=== PATIENT | female | born 1955 | race Caucasian/White ===

== ENCOUNTER 2021-07-05 19:33 | Inpatient (IN) | payer OTHER ==
[~2021-07-05] VITALS: Ht 167.6 cm; Wt 107.8 kg
[2021-07-05 19:36] VITALS: BP 179/65
[2021-07-05 20:09] LABS: URINE BILIRUBIN NEGATIVE (Negative); URINE BLOOD NEGATIVE (Negative); URINE CLARITY CLEAR; URINE COLOR YELLOW; URINE GLUCOSE-RANDOM* NEGATIVE (Negative); URINE KETONES NEGATIVE (Negative); URINE PROTEIN (DIPSTICK) NEGATIVE (Negative); URINE UROBILINOGEN 0.2 E.U./dl (0.2-1.0)
[2021-07-05 20:11] LABS: URINE LEUKOCYTES-REFLEX 1+ (Negative); URINE NITRITE-REFLEX POSITIVE (Negative)
[2021-07-05 20:16] LABS: BACTERIA-REFLEX >30 Many /HPF (None Seen); CASTS None Seen /LPF (None Seen); MUCUS 0-3 Light strn/LPF (None Seen); SQUAMOUS None Seen /LPF (0-3)
[2021-07-05 20:17] LABS: CRYSTALS None Seen /LPF (None Seen); URINE RBC 1-2 Rare /HPF (NONE SEEN); URINE WBC-REFLEX 6-15 Few /HPF (0-5)
[2021-07-05 20:24] LABS: BASOPHILS 0.4 % (0.0-2.0); EOSINOPHILS 0.7 % (0.0-3.0); HEMATOCRIT 41.7 % (37.0-47.0); HEMOGLOBIN 13.9 gm/dL (12.0-15.0); LYMPHOCYTES 13.1 % (24.0-44.0); MCH 30.2 pg (26.0-34.0); MCHC 33.3 g/dL (28.0-37.0); MCV 90.6 fL (80.0-100.0); MONOCYTES 6.6 % (1.0-8.0); PLATELET COUNT 199 thou/uL (150-400); POLYS 79.2 % (36.0-66.0); RDW 13.8 % (10.5-14.5); WBC 11.4 thou/uL (4.0-11.0)
[2021-07-05 20:33] LABS: ANION GAP 13 mmol/L (7-16); BUN 17 mg/dL (7-18); CHLORIDE 102 mmol/L (98-107); CO2 25 mmol/L (21-32); CREATININE 0.8 mg/dL (0.6-1.0); GLUCOSE 138 mg/dL (74-106); POTASSIUM 3.7 mmol/L (3.5-5.1); SODIUM 140 mmol/L (136-145)
[2021-07-05 20:39] LABS: ALBUMIN 3.7 g/dL (3.4-5.0); DIRECT BILIRUBIN < 0.1 mg/dL (<0.1-0.2); LIPASE 94 U/L (73-393); SGOT 27 U/L (15-37); SGPT 23 U/L (30-65); TOTAL BILIRUBIN 0.3 mg/dL (0.2-1.0)
[2021-07-05] MEDS ORDERED: GABAPENTIN600 M1 PO (22:04)
[2021-07-05] MEDS ORDERED: OXYBUTYNIN 5 MG5 M2 PO (22:04)
[2021-07-05] MEDS ORDERED: AMITRIPTYLINE H10 M1 PO (22:04)
[2021-07-05] MEDS ORDERED: ALLOPURINOL 10100 M1 PO (22:04)
[2021-07-05] MEDS ORDERED: SUPER THERAVIT1 EACH PO (22:05)
[2021-07-05] MEDS ORDERED: CALCIUM CITRAT200 MG PO (22:06)
[2021-07-05] MEDS ORDERED: IRON325 M1 PO (22:07)
[2021-07-05] MEDS ORDERED: B-12500 MCG PO (22:07)
[2021-07-06 04:02] LABS: HEMATOCRIT 44.9 % (37.0-47.0); MCH 30.2 pg (26.0-34.0); MCHC 33.3 g/dL (28.0-37.0); MCV 90.6 fL (80.0-100.0); RBC 4.96 mil/uL (4.20-5.00); RDW 13.9 % (10.5-14.5)
[2021-07-06 04:03] VITALS: BP 164/91
[2021-07-06 04:14] LABS: CALCIUM 8.1 mg/dL (8.5-10.1); CREATININE 0.8 mg/dL (0.6-1.0)
--- NOTE | 2021-07-06 07:27 | EKG ---
[address] [email or web address] [address] ELECTROCARDIOGRAM REPORT Name: GARRY WONG Steph Room #: 170- ADM IN .R.#: [id number] Admission: 07/05/21 Attend Phys: Melvin Carlos MD Discharge: Date of : 51 Report #: [id number] [facility] ED Test Date: 2021-07-05 Test Time: 20:26:03 Pat Name: GARRY WONG Department: Room: 170 Gender: F Advanced Practice Psychiatric Nurse: valery lester : 1955 Requested By: Bartolome Nichole Order Number: [id number] MD: Steve Vieyra Measurements Intervals [place] Rate: 75 P: 16 SC: 179 QRS: -25 QRSD: 100 T: 30 QT: 377 QTc: 421 Interpretive Statements Sinus rhythm Borderline left axis deviation Baseline wander in lead(s) V6 Compared to ECG 11/16/2007 09:40:42 No significant changes Electronically Signed On 07-06-2021 7:27:46 CDT by Steve Vieyra [email or web address] <ELECTRONICALLY SIGNED> By: Steve Vieyra MD, [facility] 07/06/2127 25 25 Steve Vieyra MD, [facility] /EPI
[2021-07-06 08:19] VITALS: BP 158/72
[2021-07-06 09:49] VITALS: BP 145/66
--- NOTE | 2021-07-06 17:20 | NUR ---
PT RECEIVED AT 1445 TO RM 434 ALERT AND IN NO ACUTE DISTRESS. PT ASSESSED AND BP NOTED TO BE LOWER AND HR TACHY. DR. YOUNG NOTIFIED AND IV FLUID BOLUS AND HOURLY RATE ORDERED. PT DOING MUCH BETTER. BP UP TO 130'S AND HR DOWN. DR. YOUNG CAME TO CHECK ON PT RECENTLY AND STATES SHE LOOKS GOOD. TO BRING HER CPAP LATER ON.
[2021-07-06 18:10] VITALS: BP 135/73
[2021-07-06 19:44] VITALS: BP 121/62
--- NOTE | 2021-07-07 02:32 | NUR ---
Pt AOx3-4. VSS. Pt in bed. assessment complete. R hand PIV flushes, cdi. NS running per order. Meds given per jan. 4 abdominal sites with steristrips, cdi. RLQ MAYO drain cdi, drain care done. Line care done. Light red blotchy rash observed on face, chest, and bilateral arms. Pt denies any itchiness, discomfort, SOB, or any other signs or symptoms. Education provided. Will continue to monitor. encouraged use of incentive spirometer. All needs met. Call light in reach
[2021-07-07 04:19] VITALS: BP 118/62
[2021-07-07 07:07] VITALS: BP 115/73
--- NOTE | 2021-07-07 09:26 | NUR ---
ASSESSMENT: CM REVIEWED CHART AND SPOKE WITH PATIENT AT THE BEDSIDE. PT IS ALERT AND ORIENTED X4. PT IS S/P LAP SHEILA. PT REPORTS LIVING IN A HOUSE WITH HER AND TWO ADULT SONS. PT REPORTS IT IS A SPLIT LEVEL HOME. PT REPORTS ABOUT 2-3 STEPS WITH NO HANDRAIL TO ENTER AND ABOUT 8 STEPS TO THE UPPER LEVEL AND 5 DOWN TO THE LOWER LEVEL WITH HANDRAILS. PT REPORTS THAT SHE DOES HAVE A CANE AND WALKER AT HOME IF NEEDED. PT REPORTS HAVING A CPAP MACHINE FOR BEDTIME. PT REPORTS SHE HAS NO HX OF HH OR POST ACUTE CARE. PT DOES NOT ANTICIPATE HAVING ANY NEEDS FROM CM. CM WILL CONTINUE TO FOLLOW TO ASSIST NEEDED.
--- NOTE | 2021-07-07 10:09 | NUR ---
ASSUMED CARE AT 0700. PATIENT IS ALERT AND ORIENTED X4. PATIENT PERRY'S, FOOD AND BEVERAGE ORDER CLERK ARE EQUAL. LUNGS ARE CLEAR AND DEMINISEHD. ABD IS SOFT WITH HYPOACTIVE BS. 82. PATIENT CONTINUES ON IV FLUIDS NS AT 100, AND IV ABT. PATIENT IS TOLERATING WITHOUT ADVERSE AFFECTS. ABD SITES WITHOUT REDNESS. MAYO DRAIN IN MID ABD AREA THAT IS DRAINING 50CC BLOODY DRAINAGE. PATIENT IS UP WITH ASSIST OF ONE STAFF AND GAIT BELT TO THE BATHROOM TO VOID BRANDI COLORED URINE. ENCOURAGED PATIENT TO DO I.S. FALL AND SAFETY PROTOCOLS IN PLACE. DENIES PAIN AT THIS TIME. CONTINUES TO PROGRESS TOWARDS D/C GOALS. WILL CONTINUE TO MONITER.
[2021-07-07 16:03] VITALS: BP 132/70
--- NOTE | 2021-07-07 18:06 | PATH ---
[facility] [address] [place] [address] PATHOLOGY RPT PROCEDURE Name: GARRY WONG Steph Room #: 434-P ADM IN M.R.#: [id number] Admission: 07/06/21 Date of : 51 Discharge: Report #: [id number] Path Case #: [id number] [facility] Accession Number: [id number] . 01 Material submitted: . gallbladder - GALLBLADDER . 01 Clinical history: . LAPAROSCOPIC CHOLECYSTECTOMY WITH G CHOLECYSTITIS, NAUSEA, ABD PAIN . 02 Diagnosis: Gallbladder, cholecystectomy: - Marked acute cholecystitis with ulceration and gangrenous necrosis. - Cholelithiasis. - Marked serositis. - Incidental lymph node. (IUV:alex; 07/07/2021) QMS 07/07/2021 1442 Local . 02 Electronically signed: . Kecia Rolon MD, Pathologist NPI- [id number] . 01 Gross description: . Fixative: Formalin Labeled: Gallbladder Specimen received: Previously punctured gallbladder Dimensions: 7.8 x 4.8 x 2.1 cm Serosa: [place]-smith, adipose covered Lymph node: Present Mucosa: Red-brown Average wall thickness: Up to 0.2 Calculi: Present, displaying a dark red-brown, slightly nodular appearance and multiple within the cystic Abnormalities: None identified . A1- Field Traffic Investigator body, fundus, and the cystic duct margin. A2- lymph node, bisected ([facility]; 07/06/2021) NRI/NRI 07/06/2021 1636 Local . 02 Pathologist provided ICD-10: K80.00, K65.8 . 02 CPT . [id number] [address] [address] PATHOLOGY RPT PROCEDURE Name: MARVINGARRY Room #: 434-P [facility] IN [facility].#: [id number] Admission: 07/06/21 Date of : 51 Discharge: Report #: [id number] Path Case #: [id number] Specimen Comment: A courtesy copy of this report has been sent [phone] Specimen Comment: [phone] Specimen Comment: Report sent to / DR BROOKS Performed at: [address], [place], [place] [id number] MD Francisco Ornelas MD Phone: [phone] Performed at: [address] [id number] MD Kecia Rolon MD Phone: [phone]
[2021-07-07 19:00] VITALS: BP 102/55
[2021-07-08 03:00] VITALS: BP 110/64
--- NOTE | 2021-07-08 04:15 | NUR ---
Pt aox4, beginning of shift assessment complete. Pt up in recliner. Meds given per mar. Pt reports a tolerable pain level denies need for pain medicine at this time. Abd KERON drain care done, cdi, secured with safety pin to gown d/t keron tugging causing discomfort. lapcholy sites cdi with steristrips in place. Pt voiding well with no issues. Instructed pt to use call light when ready to get back to bed. all linen changed. refilled water. all needs met. call light in reach.
[2021-07-08] MEDS ORDERED: NORCO5 PO (10:49)
[2021-07-08] MEDS ORDERED: BACTRIM DS TAB1 EAC1 PO (10:50)
[2021-07-08 10:57] VITALS: BP 110/64
--- NOTE | 2021-07-08 11:30 | NUR ---
ASSUMED CARE AT 0700 THIS MORNING. PT IS A/OX4, MAYO DRAIN IN PLACE OF ONE LAP SITE OTHER 4 ARE DERMA MONTERROSO. ASSESSMENTS NOTED IN CHART AND OTHERWISE UNREMARKABLE. CALL LIGHT AND OTHER NEEDS ARE WITHIN REACH. IV DC'D SINCE PT IS BEING DISCHARGED. MEDS AND TX GIVEN NEEDED AND SCHEDULED. MONITORED PT AND NOTED NO CHANGES. PT SIGN PAPERWORK AND DISCHARGE ORDERS GIVEN TO PT. PT XFERRED TO FRONT ENTRANCE TO POV.
--- NOTE | 2021-07-08 12:27 | NUR ---
ON-GOING ASSESSMENT: CM REVIEWED CHART. PT HAS ORDERS TO DISCHARGE HOME TODAY NO NEEDS. CM MET WITH PATIENT AND SHE REPORTS NO NEEDS FROM CM PRIOR TO DISCHARGE. CASE CLOSED.
--- NOTE | 2021-07-08 13:51 | NUR ---
THIS RN AGREES WITH THE CAB STARTER ASSESSMENT.
--- NOTE | 2021-07-09 13:25 | O ---
[facility] [place] [address] OPERATIVE REPORT Name: GARRY WONG Room #: 434-P [facility] IN M.R.#: [id number] Admission: 07/06/21 Attend Phys: Dav Ward, Discharge: 07/08/21 Date of : 51 Report #: [id number] THIS REPORT FOR: cc: Gladys Deleon MD, Teresa MD Patterson,Dav Carter MD ~ DATE OF SERVICE: 07/06/2021 PREOPERATIVE DIAGNOSIS: Acute cholecystitis. POSTOPERATIVE DIAGNOSIS: Acute cholecystitis. OPERATION: Laparoscopic cholecystectomy with inra-operative cholangiogram. SURGEON: Dav Ward MD ANESTHESIA: General. ESTIMATED BLOOD LOSS: Minimal. SPECIMEN: Gallbladder. DRAIN: A 15-Kinyarwanda round. DESCRIPTION OF PROCEDURE: After informed consent was obtained, the patient was brought to the operating room and placed supine. SCDs were placed and working, preoperative antibiotics were administered, general anesthesia was induced. The abdomen was prepped and draped in the usual sterile fashion. A 5 mm incision was made in the left upper quadrant. A 5 mm trocar was placed under direct vision. A supraumbilical 5 mm trocar was placed. Three right upper quadrant 5 mm ports were placed. Gallbladder was grasped at the fundus and retracted cephalad. Infundibulum was grasped and retracted laterally. I was able to dissect out the cystic duct. Ductotomy was made. Cholangiogram catheter was inserted. Cholangiogram was performed. This demonstrated filling of the cystic duct, common bile duct, common hepatic duct, bifurcation of the hepatics, smooth flow into the duodenum. This was normal. Cholangiogram catheter was removed. Cystic duct was ligated using a PDS Endoloop. Cystic artery was clipped and ligated with a single clip. Gallbladder was then taken off the liver bed with electrocautery. It was placed into an Endopouch and removed. A 15-Kinyarwanda round drain was placed to a drain out the rest of the purulence. The ports were then removed under direct vision. The fascia at the right most lateral incision was closed with a [id number] 0 Vicryl. Skin was closed with 4-0 Monocryl. Incisions were dressed with Steri-Strips. COMPLICATIONS: None. [address] [address] OPERATIVE REPORT Name: GARRY WONG Room #: 434-P [facility]#: [id number] Admission: 07/06/21 Attend Phys: Dav Ward, Discharge: 07/08/21 Date of : 51 Report #: [id number] DISPOSITION: The patient was taken to recovery in satisfactory condition. <ELECTRONICALLY SIGNED> By: Dav Ward MD 07/09/21 1325 1006 1138 Dav Ward MD /nt
== END 2021-07-08 13:00 | disposition home or self-care (01) | DRG 418 ==
LOC: ER 19:33 → EROBS 22:23 → 4S 07-06 08:35 → TBA 07-06 08:35 → 4S 07-06 14:40
PROVIDERS: Nurse Practitioner; ADMIT Surgery; ATTEND Surgery
DX: K80.00 Calculus of gallbladder with acute cholecystitis without obstruction (principal); N39.0 Urinary tract infection, site not specified; R65.10 Systemic inflammatory response syndrome (SIRS) of non-infectious origin without acute organ dysfunction; E11.9 Type 2 diabetes mellitus without complications; G89.29 Other chronic pain; Z20.822 Contact with and (suspected) exposure to COVID-19; Z98.84 Bariatric surgery status; Z79.899 Other long term (current) drug therapy; Z88.1 Allergy status to other antibiotic agents; Z88.0 Allergy status to penicillin
CPT/HCPCS: 10100; 50010; 50101; 50331; 50411; 50555; 51297; 51489; 52265; 52266; 53307; 53312; 53314; 55245; 55317; 56462; 56525; 56526; 56527; 58574; 62110; 62900; 70005